=== PATIENT | female | born 1950 | race Caucasian/White ===

== ENCOUNTER 2016-08-18 21:41 | Emergency (ER) | payer OTHER ==
--- NOTE | 2016-08-18 22:12 | ED CLINICAL REPORT ---
Clinical Report - Physicians/Mid Levels [facility] [address] [place] [address] 08/18/2016 21:54 Patient: MAG DE OLIVEIRA Time Seen: 21:58; upon arrival, initial patient contact, initial documentation, patient care assumed. Arrived- By private vehicle. Historian- patient. HISTORY OF PRESENT ILLNESS Chief Complaint: Injury to ABDOMEN. Location of injuries- abdomen. The injury occurred about 3 days ago. 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 Occurred at work. The patient complains of severe pain. No blow to the head, neck pain, loss of consciousness or seizure. Not dazed. REVIEW OF SYSTEMS No laceration. All systems otherwise negative, except as recorded above. PAST HISTORY See nurses notes. PAST HISTORY ( Insect Bite(s). Fall. Abrasion(s). Contusion. Fibula Fracture. Tetanus Status. Bronchitis. Immunizations. Tendonitis. Hives. SURGERIES: Tonsillectomy.). Tetanus immunization status is unknown. SOCIAL HISTORY Never smoker. No alcohol use or drug use. No recent travel. Is a local resident. FAMILY HISTORY No significant family medical history. ADDITIONAL NOTES The nursing notes have been reviewed with agreement regarding the chief complaint, HPI, ROS, PMH and patient medications and allergies. PHYSICAL EXAM Vital Signs: 08/18/2016 22:02 BP: 158/79. HR: 84. RR: 20. O2 saturation: 98%. Temp: 98.4 F. Pain level now: 8/10. Have been reviewed as normal and appear to be correct. Appearance: Alert. Oriented X3. No acute distress. Eyes: Pupils equal, round and reactive to light. EOM intact. ENT: No dental injury. Pharynx normal. Abdomen: Injury is visible. Soft. Abdomen: severe tenderness and small abrasion located in the mid-upper abdomen. (2cm superficial abrasion without any s/s of infection, no swelling, no erythema, no warmth, no dc, but pt jumpy and states it hurts really bad). No erythema, puncture wound or foreign body. No swelling. No laceration. No ecchymosis. No guarding present. No rebound present. Tenderness present. Skin: Skin intact. Skin warm and dry. Normal skin color. Normal skin turgor. Extremities: Normal inspection. Pelvis stable. Extremities atraumatic. No lower extremity edema. Neuro: Oriented X 3. No motor deficit. No sensory deficit. PROGRESS AND PROCEDURES Course of Care: when explaining to pt that wound looked great, no s/s of infection, she insisted it was infected, and c/o severe pain, it was swollen and was hard, admitted to no wound care because it 'hurt too bad' 22:11 08/18/16. L&I paperwork completed. Patient counseled in person regarding the patient's stable condition and diagnosis. 22:12. Differential Diagnosis: Other possible considerations: scratch/abrasions, infected wound, cat scratch fever. Above considerations are based on history and physical exam. Differential diagnosis was discussed with patient. Disposition: Discharged home in good and improved condition (22:12). Condition: good and stable. CLINICAL IMPRESSION (Cat Scratch - abd). INSTRUCTIONS Protect wound and keep wound area clean. Soak in warm soapy water. Apply bacitracin twice daily. Warnings: TETANUS: You were given a tetanus shot during your visit. Make a note for future reference. GENERAL WARNINGS: Return or contact your physician immediately if your condition worsens or changes unexpectedly, if not improving as expected, or if other problems arise. wound gets worse. Prescription Medications: Naproxen 500 mg tablets: take 1 orally every 12 hours as needed for pain. Dispense twenty (20). No refills. Cephalexin 500 mg: take 1 capsule orally every 12 hours for 7 days. No refill. Follow-up: Follow up with your doctor in about three days as needed and for wound check. Call for an appointment. Summary of care provided to patient. Understanding of the discharge instructions verbalized by patient. (Electronically signed by Ivelisse Tamayo A.R.N.P. 08/18/2016 22:43)
--- NOTE | 2016-08-18 22:12 | ED CLINICAL REPORT ---
Clinical Report - Physicians/Mid Levels [facility] [address] [place] [address] 08/18/2016 21:54 Patient: MAG DE OLIVEIRA Time Seen: 21:58; upon arrival, initial patient contact, initial documentation, patient care assumed. Arrived- By private vehicle. Historian- patient. HISTORY OF PRESENT ILLNESS Chief Complaint: Injury to ABDOMEN. Location of injuries- abdomen. The injury occurred about 3 days ago. 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 Occurred at work. The patient complains of severe pain. No blow to the head, neck pain, loss of consciousness or seizure. Not dazed. REVIEW OF SYSTEMS No laceration. All systems otherwise negative, except as recorded above. PAST HISTORY See nurses notes. PAST HISTORY ( Insect Bite(s). Fall. Abrasion(s). Contusion. Fibula Fracture. Tetanus Status. Bronchitis. Immunizations. Tendonitis. Hives. SURGERIES: Tonsillectomy.). Tetanus immunization status is unknown. SOCIAL HISTORY Never smoker. No alcohol use or drug use. No recent travel. Is a local resident. FAMILY HISTORY No significant family medical history. ADDITIONAL NOTES The nursing notes have been reviewed with agreement regarding the chief complaint, HPI, ROS, PMH and patient medications and allergies. PHYSICAL EXAM Vital Signs: 08/18/2016 22:02 BP: 158/79. HR: 84. RR: 20. O2 saturation: 98%. Temp: 98.4 F. Pain level now: 8/10. Have been reviewed as normal and appear to be correct. Appearance: Alert. Oriented X3. No acute distress. Eyes: Pupils equal, round and reactive to light. EOM intact. ENT: No dental injury. Pharynx normal. Abdomen: Injury is visible. Soft. Abdomen: severe tenderness and small abrasion located in the mid-upper abdomen. (2cm superficial abrasion without any s/s of infection, no swelling, no erythema, no warmth, no dc, but pt jumpy and states it hurts really bad). No erythema, puncture wound or foreign body. No swelling. No laceration. No ecchymosis. No guarding present. No rebound present. Tenderness present. Skin: Skin intact. Skin warm and dry. Normal skin color. Normal skin turgor. Extremities: Normal inspection. Pelvis stable. Extremities atraumatic. No lower extremity edema. Neuro: Oriented X 3. No motor deficit. No sensory deficit. PROGRESS AND PROCEDURES Course of Care: when explaining to pt that wound looked great, no s/s of infection, she insisted it was infected, and c/o severe pain, it was swollen and was hard, admitted to no wound care because it 'hurt too bad' 22:11 08/18/16. L&I paperwork completed. Patient counseled in person regarding the patient's stable condition and diagnosis. 22:12. Differential Diagnosis: Other possible considerations: scratch/abrasions, infected wound, cat scratch fever. Above considerations are based on history and physical exam. Differential diagnosis was discussed with patient. Disposition: Discharged home in good and improved condition (22:12). Condition: good and stable. CLINICAL IMPRESSION (Cat Scratch - abd). INSTRUCTIONS Protect wound and keep wound area clean. Soak in warm soapy water. Apply bacitracin twice daily. Warnings: TETANUS: You were given a tetanus shot during your visit. Make a note for future reference. GENERAL WARNINGS: Return or contact your physician immediately if your condition worsens or changes unexpectedly, if not improving as expected, or if other problems arise. wound gets worse. Prescription Medications: Naproxen 500 mg tablets: take 1 orally every 12 hours as needed for pain. Dispense twenty (20). No refills. Cephalexin 500 mg: take 1 capsule orally every 12 hours for 7 days. No refill. Follow-up: Follow up with your doctor in about three days as needed and for wound check. Call for an appointment. Summary of care provided to patient. Understanding of the discharge instructions verbalized by patient. (Electronically signed by Ivelisse Tamayo A.R.N.P. 08/18/2016 22:43)
--- NOTE | 2016-08-18 22:12 | ED ORDER SUMMARY ---
..... Patient: MAG DE OLIVEIRA OrderSheet [facility] VisitID: [id number] [address] [place] [address] 65y, F Registration Date/Time: 08/18/2016 ORDER SHEET Weight: 72.5 kg (stated) Allergies: Amoxicillin GENERAL ORDERS: MEDICATION ORDERS: Tdap IM 0.5 mL (NOW, per protocol) (22:09 08/18/2016 HBivens A.R.N.P.) ([facility] 22:11 ann marie) (22:18 [facility] IV FLUIDS: ORDER SHEET NOTES: [Electronically signed by Ivelisse Tamayo A.R.N.P. (22:43 08/18/2016)] [Electronically signed by Maame Juarez (23:39 08/18/2016)] [Electronically locked/signed by Maame Juarez (23:39 08/18/2016)]
--- NOTE | 2016-08-18 22:12 | ED ORDER SUMMARY ---
..... Patient: MAG DE OLIVEIRA OrderSheet [facility] VisitID: [id number] [address] [place] [address] 65y, F Registration Date/Time: 08/18/2016 ORDER SHEET Weight: 72.5 kg (stated) Allergies: Amoxicillin GENERAL ORDERS: MEDICATION ORDERS: Tdap IM 0.5 mL (NOW, per protocol) (22:09 08/18/2016 HBivens A.R.N.P.) ([facility] 22:11 ann marie) (22:18 [facility] IV FLUIDS: ORDER SHEET NOTES: [Electronically signed by Ivelisse Tamayo A.R.N.P. (22:43 08/18/2016)] [Electronically signed by Maame Juarez (23:39 08/18/2016)] [Electronically locked/signed by Maame Juarez (23:39 08/18/2016)]
--- NOTE | 2016-08-18 22:12 | ED NURSING NOTES ---
Clinical Report - Nurses [facility] [address] [place] [address] 08/18/2016 21:54 [id number] Triage time 22:02 Aug 18 2016. SEPSIS SCREEN: Sepsis Screen: negative. Negative (no infection suspected/documented). ERIC COMA SCORE: [place] Coma Scale: 15- eyes open spontaneously (4); best verbal response- oriented x 4 (5); best motor response- obeys commands (6). --22:09 AliM 22:02 08/18/16. BP: 158/79. HR: 84. RR: 20. O2 saturation: 98%. Temp: 98.4 F (oral). Pain level now: 8/10. --22:09 AliM Chief Complaint: (Cat scratch on abdomen). --22:30 AliM. Weight: 72.5 kg stated. Height/Length: 61 inches Per Patient. BMI: 30.2. --22:09 AliM. Medications None. --23:39 Maame Juarez. Allergies Amoxicillin. --22:04 AliM. History Arrived by private vehicle. Historian: patient. Accompanied by family. Primary physician (none). ( Cat scratch on abd). Onset. (3 days ago). ( Pt reports getting cat scratch on abd at work 2-4 days ago. Pt reports pain and swelling to the area and states it wont heal.). No weakness or difficulty breathing. Denies muscle aches. PAST MEDICAL HX: Immunizations: up-to-date. Last normal menstrual period- 58 years old. SOCIAL HX: Never smoker. Occasional alcohol use. No drug use. No infectious disease exposure. ABUSE ASSESSMENT: No report of abuse. FALL RISK ASSESSMENT: Fall risk assessment completed. No fall risk identified. NUTRITIONAL RISK ASSESSMENT: The nutritional risk assessment revealed no deficiencies. FUNCTIONAL ASSESSMENT: Functional assessment: no impairments noted. LEARNING NEEDS ASSESSMENT: The learning needs assessment revealed no barriers. SKIN INTEGRITY ASSESSMENT: Skin integrity risk assessment completed. No skin integrity risk identified. --22:09 AliM. PROBLEMS: Tetanus Status. --22:06 AliM. ADDITIONAL SURGERIES: Tonsillectomy. --22:06 AliM. Interventions ID band on patient. To treatment room. --22:09 AliM. PHYSICAL ASSESSMENT Ambulatory to room. GENERAL / NEURO / PSYCH: Alert. Oriented X 4. Appears in no acute distress. HEENT: No facial asymmetry noted. Mucous membranes are pink. RESPIRATORY: Respirations not labored. CVS: Capillary refill less than 2 seconds. SKIN: Skin is warm and dry. Normal skin turgor. --22:11 AliM SKIN: ( Approx 1 inch scab with redness on middle upper abdomen.). --22:12 AliM. NURSING PROGRESS NOTES 22:13 08/18/2016 TDAP IM 0.5 mL given. (Lot#: [id number], expiration date: 03/24/2018, [employer] Attendant: sanofi pasteur). Given in the left deltoid. Allergies verified and confirmed 5 rights. Vaccine information statement provided to the patient. --22:18 AliM. DISPOSITION / DISCHARGE Condition at departure: stable. ( Pain still present but VS improved.). No learning barriers present. Discharge instructions provided and reviewed with the patient. Patient verbalized understanding. Written instructions provided in Yi. ( Taught pt to avoid irritation from bra to affected area, apply ice as needed for pain/swelling. Drink plenty of fluids with antibiotic. Gave number for [facility] to find PCP.). The patient was discharged by the nurse practitioner. She was discharged home and accompanied by spouse. She left the Emergency Department ambulatory and via private vehicle. Patient driving. FALL RISK ASSESSMENT: Fall risk assessment completed. No fall risk identified. --22:29 AliM 22:27 08/18/16. BP: 127/74. HR: 87. RR: 16. O2 saturation: 96%. Temp: 97.9 F (oral). Pain level now: 01/27. --22:29 Maritza Reviewed medication(s) side effects, precautions, dosing and course information. Prescription(s) given to the patient. --22:31 AliM 23:38 08/18/16. ( Chart reviewed by writing RN). --23:38 Maame Juarez. Locked/Released at 08/18/2016 23:39 by Maame Juarez,
--- NOTE | 2016-08-18 22:12 | ED NURSING NOTES ---
Clinical Report - Nurses [facility] [address] [place] [address] 08/18/2016 21:54 [id number] Triage time 22:02 Aug 18 2016. SEPSIS SCREEN: Sepsis Screen: negative. Negative (no infection suspected/documented). ERIC COMA SCORE: [place] Coma Scale: 15- eyes open spontaneously (4); best verbal response- oriented x 4 (5); best motor response- obeys commands (6). --22:09 AliM 22:02 08/18/16. BP: 158/79. HR: 84. RR: 20. O2 saturation: 98%. Temp: 98.4 F (oral). Pain level now: 8/10. --22:09 AliM Chief Complaint: (Cat scratch on abdomen). --22:30 AliM. Weight: 72.5 kg stated. Height/Length: 61 inches Per Patient. BMI: 30.2. --22:09 AliM. Medications None. --23:39 Maame Juarez. Allergies Amoxicillin. --22:04 AliM. History Arrived by private vehicle. Historian: patient. Accompanied by family. Primary physician (none). ( Cat scratch on abd). Onset. (3 days ago). ( Pt reports getting cat scratch on abd at work 2-4 days ago. Pt reports pain and swelling to the area and states it wont heal.). No weakness or difficulty breathing. Denies muscle aches. PAST MEDICAL HX: Immunizations: up-to-date. Last normal menstrual period- 58 years old. SOCIAL HX: Never smoker. Occasional alcohol use. No drug use. No infectious disease exposure. ABUSE ASSESSMENT: No report of abuse. FALL RISK ASSESSMENT: Fall risk assessment completed. No fall risk identified. NUTRITIONAL RISK ASSESSMENT: The nutritional risk assessment revealed no deficiencies. FUNCTIONAL ASSESSMENT: Functional assessment: no impairments noted. LEARNING NEEDS ASSESSMENT: The learning needs assessment revealed no barriers. SKIN INTEGRITY ASSESSMENT: Skin integrity risk assessment completed. No skin integrity risk identified. --22:09 AliM. PROBLEMS: Tetanus Status. --22:06 AliM. ADDITIONAL SURGERIES: Tonsillectomy. --22:06 AliM. Interventions ID band on patient. To treatment room. --22:09 AliM. PHYSICAL ASSESSMENT Ambulatory to room. GENERAL / NEURO / PSYCH: Alert. Oriented X 4. Appears in no acute distress. HEENT: No facial asymmetry noted. Mucous membranes are pink. RESPIRATORY: Respirations not labored. CVS: Capillary refill less than 2 seconds. SKIN: Skin is warm and dry. Normal skin turgor. --22:11 AliM SKIN: ( Approx 1 inch scab with redness on middle upper abdomen.). --22:12 AliM. NURSING PROGRESS NOTES 22:13 08/18/2016 TDAP IM 0.5 mL given. (Lot#: [id number], expiration date: 03/24/2018, [employer] Operator: sanofi pasteur). Given in the left deltoid. Allergies verified and confirmed 5 rights. Vaccine information statement provided to the patient. --22:18 AliM. DISPOSITION / DISCHARGE Condition at departure: stable. ( Pain still present but VS improved.). No learning barriers present. Discharge instructions provided and reviewed with the patient. Patient verbalized understanding. Written instructions provided in Slovak. ( Taught pt to avoid irritation from bra to affected area, apply ice as needed for pain/swelling. Drink plenty of fluids with antibiotic. Gave number for [facility] to find PCP.). The patient was discharged by the nurse practitioner. She was discharged home and accompanied by spouse. She left the Emergency Department ambulatory and via private vehicle. Patient driving. FALL RISK ASSESSMENT: Fall risk assessment completed. No fall risk identified. --22:29 AliM 22:27 08/18/16. BP: 127/74. HR: 87. RR: 16. O2 saturation: 96%. Temp: 97.9 F (oral). Pain level now: 01/27. --22:29 Maritza Reviewed medication(s) side effects, precautions, dosing and course information. Prescription(s) given to the patient. --22:31 AliM 23:38 08/18/16. ( Chart reviewed by writing RN). --23:38 Maame Juarez. Locked/Released at 08/18/2016 23:39 by Maame Juarez,
--- NOTE | 2016-08-18 23:39 | ED MED RECONCILIATION SUMMARY ---
Patient: MAG DE OLIVEIRA Medication Reconciliation Report [facility] VisitID: [id number] [address] [place] [address] 65y, F Registration Date/Time: 08/18/2016 Weight: 72.5 kg Height/Length: 61 in. BMI: 30.2 ALLERGIES: Amoxicillin The patient's Home Medications are listed below: NONE. The source(s) of the original Home Medication information: Not obtained. The following Medications were given to the patient in the Emergency Department: TDAP [IM] IM 0.5 mL, administered: 08/18/2016 10:13:00 PM The following Medications were prescribed to the patient: Naproxen 500 mg tablets: take 1 orally every 12 hours as needed for pain. Dispense twenty (20). No refills. -- Ivelisse Tamayo, Vahe.R.N.P. Cephalexin 500 mg: take 1 capsule orally every 12 hours for 7 days. No refill. -- Ivelisse Tamayo A.R.N.P.
--- NOTE | 2016-08-18 23:39 | ED MAR SUMMARY ---
..... Medication Administration Record [facility] [address] [place] [address] Patient: MAG DE OLIVEIRA Visit ID: [id number] 65y, F Weight: 72.5 kg Height/Length: 61 in BMI: 30.2 ALLERGIES: Amoxicillin Given 22:13 08/18/2016 Maritza, Medication Administered: TDAP [IM], Dose: 0.5 mL IM. Medication Ordered: Tdap IM 0.5 mL (NOW, per protocol).
--- NOTE | 2016-08-18 23:39 | ED DISCHARGE INSTRUCTIONS ---
Patient: MAG DE OLIVEIRA General Instructions [facility] VisitID: [id number] [place] [address] 65y, F Registration Date/Time: 08/18/2016 ([employer] - abd). INSTRUCTIONS Protect wound and keep wound area clean. Soak in warm soapy water. Apply bacitracin twice daily. Warnings: TETANUS: You were given a tetanus shot during your visit. Make a note for future reference. GENERAL WARNINGS: Return or contact your physician immediately if your condition worsens or changes unexpectedly, if not improving as expected, or if other problems arise. wound gets worse. Prescription Medications: Naproxen 500 mg tablets: take 1 orally every 12 hours as needed for pain. Dispense twenty (20). No refills. Cephalexin 500 mg: take 1 capsule orally every 12 hours for 7 days. No refill. Follow-up: Follow up with your doctor in about three days as needed and for wound check. Call for an appointment. Summary of care provided to patient. Understanding of the discharge instructions verbalized by patient. ADDITIONAL INFORMATION Diphtheria Toxoid Adsorbed, Pertussis Vaccine, Acellular (Adsorbed), Tetanus Toxoid, Adsorbed Suspension for injection What is this medicine? DIPHTHERIA and TETANUS TOXOIDS; PERTUSSIS VACCINE (dif THEER ee uh and TET n us TOK soids; per HERVE ochoa SEEN) is used to prevent diphtheria, tetanus, and pertussis infections. How should I use this medicine? This vaccine is for injection into a muscle. It is given by a health hospice patient care secretary. A copy of Vaccine Information Statements will be given before each vaccination. Read this sheet carefully each time. The sheet may change frequently. Talk to your truck terminal manager regarding the use of this vaccine in children. While the DTP vaccine may be given to children ages 6 weeks to 7 years and the Tdap vaccine may be given to children at least 10 years old, precautions do apply. What side effects may I notice from receiving this medicine? Side effects that you should report to your doctor or health hospice patient care secretary as soon as possible: allergic reactions like skin rash, itching or hives, swelling of the face, lips, or tongue breathing problems fever of 103 degrees F or more flu-like symptoms inconsolable crying infection pain, tingling, numbness in the hands or feet seizures swelling of arm or leg that was injected unusually weak or tired Side effects that usually do not require immediate medical attention (report these side effects to your doctor or health hospice patient care secretary if they continue or are bothersome): fussy, irritable loss of appetite fever of 102 degrees F or less pain, tenderness, redness, swelling, or a 'knot' at site where injected vomiting What may interact with this medicine? immune globulin medicines that suppress your immune function like adalimumab, anakinra, infliximab medicines to treat cancer medicines that treat or prevent blood clots like warfarin, enoxaparin, and dalteparin steroid medicines like prednisone or cortisone What if I miss a dose? It is important not to miss your dose. Call your doctor or health hospice patient care secretary if you are unable to keep an appointment. Where should I keep my medicine? This drug is given in a hospital or clinic and will not be stored at home. What should I tell my health care provider before I take this medicine? They need to know if you have any of these conditions: blood disorders like hemophilia fever or infection immune system problems neurologic disease seizures an unusual or allergic reaction to vaccines, thimerosal, latex, other medicines, foods, dyes, or preservatives or trying to get breast-feeding What should I watch for while using this medicine? See your health care provider for all shots of this vaccine as directed. To have protection from infection, you must have 3 shots of this vaccine plus boosters as needed. Tell your doctor right away if you have any serious or unusual side effects after getting this vaccine. Naproxen Sodium Oral tablet What is this medicine? NAPROXEN (na PROX en) is a non-steroidal anti-inflammatory drug (NSAID). It is used to reduce swelling and to treat pain. This medicine may be used for dental pain, headache, or painful monthly periods. It is also used for painful joint and muscular problems such as arthritis, tendinitis, bursitis, and gout. How should I use this medicine? Take this medicine by mouth with a glass of water. Follow the directions on the prescription label. Take it with food if your stomach gets upset. Try to not lie down for at least 10 minutes after you take it. Take your medicine at regular intervals. Do not take your medicine more often than directed. Long-term, continuous use may increase the risk of heart attack or stroke. A special MedGuide will be given to you by the pharmacist with each prescription and refill. Be sure to read this information carefully each time. Talk to your truck terminal manager regarding the use of this medicine in children. Special care may be needed. What side effects may I notice from receiving this medicine? Side effects that you should report to your doctor or health hospice patient care secretary as soon as possible: black or bloody stools, blood in the urine or vomit blurred vision chest pain difficulty breathing or wheezing nausea or vomiting severe stomach pain skin rash, skin redness, blistering or peeling skin, hives, or itching slurred speech or weakness on one side of the body swelling of eyelids, throat, lips unexplained weight gain or swelling unusually weak or tired yellowing of eyes or skin Side effects that usually do not require medical attention (report to your doctor or health hospice patient care secretary if they continue or are bothersome): constipation headache heartburn What may interact with this medicine? alcohol aspirin cidofovir diuretics lithium methotrexate other drugs for inflammation like ketorolac or prednisone pemetrexed probenecid warfarin What if I miss a dose? If you miss a dose, take it as soon as you can. If it is almost time for your next dose, take only that dose. Do not take double or extra doses. Where should I keep my medicine? Keep out of the reach of children. Store at room temperature between 15 and 30 degrees C (59 and 86 degrees F). Keep container tightly closed. Throw away any unused medicine after the expiration date. What should I tell my health care provider before I take this medicine? They need to know if you have any of these conditions: asthma cigarette smoker drink more than 3 alcohol containing drinks a day heart disease or circulation problems such as heart failure or leg edema (fluid retention) high blood pressure kidney disease liver disease stomach bleeding or ulcers an unusual or allergic reaction to naproxen, aspirin, other NSAIDs, other medicines, foods, dyes, or preservatives or trying to get breast-feeding What should I watch for while using this medicine? Tell your doctor or health hospice patient care secretary if your pain does not get better. Talk to your doctor before taking another medicine for pain. Do not treat yourself. This medicine does not prevent heart attack or stroke. In fact, this medicine may increase the chance of a heart attack or stroke. The chance may increase with longer use of this medicine and in people who have heart disease. If you take aspirin to prevent heart attack or stroke, talk with your doctor or health hospice patient care secretary. Do not take other medicines that contain aspirin, ibuprofen, or naproxen with this medicine. Side effects such as stomach upset, nausea, or ulcers may be more likely to occur. Many medicines available without a prescription should not be taken with this medicine. This medicine can cause ulcers and bleeding in the stomach and intestines at any time during treatment. Do not smoke cigarettes or drink alcohol. These increase irritation to your stomach and can make it more susceptible to damage from this medicine. Ulcers and bleeding can happen without warning symptoms and can cause . You may get drowsy or dizzy. Do not drive, use machinery, or do anything that needs mental alertness until you know how this medicine affects you. Do not stand or sit up quickly, especially if you are an older patient. This reduces the risk of dizzy or fainting spells. This medicine can cause you to bleed more easily. Try to avoid damage to your teeth and gums when you brush or floss your teeth. Cephalexin Monohydrate Oral tablet What is this medicine? CEPHALEXIN (sef a RICHARD in) is a cephalosporin antibiotic. It is used to treat certain kinds of bacterial infections It will not work for colds, flu, or other viral infections. How should I use this medicine? Take this medicine by mouth with a full glass of water. Follow the directions on the prescription label. This medicine can be taken with or without food. Take your medicine at regular intervals. Do not take your medicine more often than directed. Take all of your medicine as directed even if you think you are better. Do not skip doses or stop your medicine early. Talk to your truck terminal manager regarding the use of this medicine in children. While this drug may be prescribed for selected conditions, precautions do apply. What side effects may I notice from receiving this medicine? Side effects that you should report to your doctor or health hospice patient care secretary as soon as possible: allergic reactions like skin rash, itching or hives, swelling of the face, lips, or tongue breathing problems pain or trouble passing urine redness, blistering, peeling or loosening of the skin, including inside the mouth severe or watery diarrhea unusually weak or tired yellowing of the eyes, skin Side effects that usually do not require medical attention (report to your doctor or health hospice patient care secretary if they continue or are bothersome): gas or heartburn genital or anal irritation headache joint or muscle pain nausea, vomiting What may interact with this medicine? probenecid some other antibiotics What if I miss a dose? If you miss a dose, take it as soon as you can. If it is almost time for your next dose, take only that dose. Do not take double or extra doses. There should be at least 4 to 6 hours between doses. Where should I keep my medicine? Keep out of the reach of children. Store at room temperature between 59 and 86 degrees F (15 and 30 degrees C). Throw away any unused medicine after the expiration date. What should I tell my health care provider before I take this medicine? They need to know if you have any of these conditions: kidney disease stomach or intestine problems, especially colitis an unusual or allergic reaction to cephalexin, other cephalosporins, penicillins, other antibiotics, medicines, foods, dyes or preservatives or trying to get breast-feeding What should I watch for while using this medicine? Tell your doctor or health hospice patient care secretary if your symptoms do not begin to improve in a few days. Do not treat diarrhea with over the counter products. Contact your doctor if you have diarrhea that lasts more than 2 days or if it is severe and watery. If you have diabetes, you may get a false-positive result for sugar in your urine. Check with your doctor or health hospice patient care secretary. You have been given the following additional information: Diphtheria Toxoid Adsorbed, Pertussis Vaccine, Acellular (Adsorbed), Tetanus Toxoid, Adsorbed Suspension for injection Naproxen Sodium Oral tablet Cephalexin Monohydrate Oral tablet (Electronically signed by Ivelisse Tamayo A.R.N.P. 08/18/2016 22:43)
--- NOTE | 2016-08-18 23:39 | ED MED RECONCILIATION SUMMARY ---
Patient: MAG DE OLIVEIRA Medication Reconciliation Report [facility] VisitID: [id number] [place] [address] 65y, F Registration Date/Time: 08/18/2016 Weight: 72.5 kg Height/Length: 61 in. BMI: 30.2 ALLERGIES: Amoxicillin The patient's Home Medications are listed below: NONE. The source(s) of the original Home Medication information: Not obtained. The following Medications were given to the patient in the Emergency Department: TDAP [IM] IM 0.5 mL, administered: 08/18/2016 10:13:00 PM The following Medications were prescribed to the patient: Naproxen 500 mg tablets: take 1 orally every 12 hours as needed for pain. Dispense twenty (20). No refills. -- Ivelisse Tamayo, Vahe.R.N.P. Cephalexin 500 mg: take 1 capsule orally every 12 hours for 7 days. No refill. -- Ivelisse Tamayo A.R.N.P.
--- NOTE | 2016-08-18 23:39 | ED DISCHARGE INSTRUCTIONS ---
Patient: MAG DE OLIVEIRA General Instructions Merged With [facility] VisitID: [id number] [place] [address] 65y, F Registration Date/Time: 08/18/2016 ([facility] - abd). INSTRUCTIONS Protect wound and keep wound area clean. Soak in warm soapy water. Apply bacitracin twice daily. Warnings: TETANUS: You were given a tetanus shot during your visit. Make a note for future reference. GENERAL WARNINGS: Return or contact your physician immediately if your condition worsens or changes unexpectedly, if not improving as expected, or if other problems arise. wound gets worse. Prescription Medications: Naproxen 500 mg tablets: take 1 orally every 12 hours as needed for pain. Dispense twenty (20). No refills. Cephalexin 500 mg: take 1 capsule orally every 12 hours for 7 days. No refill. Follow-up: Follow up with your doctor in about three days as needed and for wound check. Call for an appointment. Summary of care provided to patient. Understanding of the discharge instructions verbalized by patient. ADDITIONAL INFORMATION Diphtheria Toxoid Adsorbed, Pertussis Vaccine, Acellular (Adsorbed), Tetanus Toxoid, Adsorbed Suspension for injection What is this medicine? DIPHTHERIA and TETANUS TOXOIDS; PERTUSSIS VACCINE (dif THEER ee uh and TET n us TOK soids; per HERVE ochoa SEEN) is used to prevent diphtheria, tetanus, and pertussis infections. How should I use this medicine? This vaccine is for injection into a muscle. It is given by a health complex care nurse practitioner. A copy of Vaccine Information Statements will be given before each vaccination. Read this sheet carefully each time. The sheet may change frequently. Talk to your court specialist regarding the use of this vaccine in children. While the DTP vaccine may be given to children ages 6 weeks to 7 years and the Tdap vaccine may be given to children at least 10 years old, precautions do apply. What side effects may I notice from receiving this medicine? Side effects that you should report to your doctor or health complex care nurse practitioner as soon as possible: allergic reactions like skin rash, itching or hives, swelling of the face, lips, or tongue breathing problems fever of 103 degrees F or more flu-like symptoms inconsolable crying infection pain, tingling, numbness in the hands or feet seizures swelling of arm or leg that was injected unusually weak or tired Side effects that usually do not require immediate medical attention (report these side effects to your doctor or health complex care nurse practitioner if they continue or are bothersome): fussy, irritable loss of appetite fever of 102 degrees F or less pain, tenderness, redness, swelling, or a 'knot' at site where injected vomiting What may interact with this medicine? immune globulin medicines that suppress your immune function like adalimumab, anakinra, infliximab medicines to treat cancer medicines that treat or prevent blood clots like warfarin, enoxaparin, and dalteparin steroid medicines like prednisone or cortisone What if I miss a dose? It is important not to miss your dose. Call your doctor or health complex care nurse practitioner if you are unable to keep an appointment. Where should I keep my medicine? This drug is given in a hospital or clinic and will not be stored at home. What should I tell my health care provider before I take this medicine? They need to know if you have any of these conditions: blood disorders like hemophilia fever or infection immune system problems neurologic disease seizures an unusual or allergic reaction to vaccines, thimerosal, latex, other medicines, foods, dyes, or preservatives or trying to get breast-feeding What should I watch for while using this medicine? See your health care provider for all shots of this vaccine as directed. To have protection from infection, you must have 3 shots of this vaccine plus boosters as needed. Tell your doctor right away if you have any serious or unusual side effects after getting this vaccine. Naproxen Sodium Oral tablet What is this medicine? NAPROXEN (na PROX en) is a non-steroidal anti-inflammatory drug (NSAID). It is used to reduce swelling and to treat pain. This medicine may be used for dental pain, headache, or painful monthly periods. It is also used for painful joint and muscular problems such as arthritis, tendinitis, bursitis, and gout. How should I use this medicine? Take this medicine by mouth with a glass of water. Follow the directions on the prescription label. Take it with food if your stomach gets upset. Try to not lie down for at least 10 minutes after you take it. Take your medicine at regular intervals. Do not take your medicine more often than directed. Long-term, continuous use may increase the risk of heart attack or stroke. A special MedGuide will be given to you by the pharmacist with each prescription and refill. Be sure to read this information carefully each time. Talk to your court specialist regarding the use of this medicine in children. Special care may be needed. What side effects may I notice from receiving this medicine? Side effects that you should report to your doctor or health complex care nurse practitioner as soon as possible: black or bloody stools, blood in the urine or vomit blurred vision chest pain difficulty breathing or wheezing nausea or vomiting severe stomach pain skin rash, skin redness, blistering or peeling skin, hives, or itching slurred speech or weakness on one side of the body swelling of eyelids, throat, lips unexplained weight gain or swelling unusually weak or tired yellowing of eyes or skin Side effects that usually do not require medical attention (report to your doctor or health complex care nurse practitioner if they continue or are bothersome): constipation headache heartburn What may interact with this medicine? alcohol aspirin cidofovir diuretics lithium methotrexate other drugs for inflammation like ketorolac or prednisone pemetrexed probenecid warfarin What if I miss a dose? If you miss a dose, take it as soon as you can. If it is almost time for your next dose, take only that dose. Do not take double or extra doses. Where should I keep my medicine? Keep out of the reach of children. Store at room temperature between 15 and 30 degrees C (59 and 86 degrees F). Keep container tightly closed. Throw away any unused medicine after the expiration date. What should I tell my health care provider before I take this medicine? They need to know if you have any of these conditions: asthma cigarette smoker drink more than 3 alcohol containing drinks a day heart disease or circulation problems such as heart failure or leg edema (fluid retention) high blood pressure kidney disease liver disease stomach bleeding or ulcers an unusual or allergic reaction to naproxen, aspirin, other NSAIDs, other medicines, foods, dyes, or preservatives or trying to get breast-feeding What should I watch for while using this medicine? Tell your doctor or health complex care nurse practitioner if your pain does not get better. Talk to your doctor before taking another medicine for pain. Do not treat yourself. This medicine does not prevent heart attack or stroke. In fact, this medicine may increase the chance of a heart attack or stroke. The chance may increase with longer use of this medicine and in people who have heart disease. If you take aspirin to prevent heart attack or stroke, talk with your doctor or health complex care nurse practitioner. Do not take other medicines that contain aspirin, ibuprofen, or naproxen with this medicine. Side effects such as stomach upset, nausea, or ulcers may be more likely to occur. Many medicines available without a prescription should not be taken with this medicine. This medicine can cause ulcers and bleeding in the stomach and intestines at any time during treatment. Do not smoke cigarettes or drink alcohol. These increase irritation to your stomach and can make it more susceptible to damage from this medicine. Ulcers and bleeding can happen without warning symptoms and can cause . You may get drowsy or dizzy. Do not drive, use machinery, or do anything that needs mental alertness until you know how this medicine affects you. Do not stand or sit up quickly, especially if you are an older patient. This reduces the risk of dizzy or fainting spells. This medicine can cause you to bleed more easily. Try to avoid damage to your teeth and gums when you brush or floss your teeth. Cephalexin Monohydrate Oral tablet What is this medicine? CEPHALEXIN (sef a RICHARD in) is a cephalosporin antibiotic. It is used to treat certain kinds of bacterial infections It will not work for colds, flu, or other viral infections. How should I use this medicine? Take this medicine by mouth with a full glass of water. Follow the directions on the prescription label. This medicine can be taken with or without food. Take your medicine at regular intervals. Do not take your medicine more often than directed. Take all of your medicine as directed even if you think you are better. Do not skip doses or stop your medicine early. Talk to your court specialist regarding the use of this medicine in children. While this drug may be prescribed for selected conditions, precautions do apply. What side effects may I notice from receiving this medicine? Side effects that you should report to your doctor or health complex care nurse practitioner as soon as possible: allergic reactions like skin rash, itching or hives, swelling of the face, lips, or tongue breathing problems pain or trouble passing urine redness, blistering, peeling or loosening of the skin, including inside the mouth severe or watery diarrhea unusually weak or tired yellowing of the eyes, skin Side effects that usually do not require medical attention (report to your doctor or health complex care nurse practitioner if they continue or are bothersome): gas or heartburn genital or anal irritation headache joint or muscle pain nausea, vomiting What may interact with this medicine? probenecid some other antibiotics What if I miss a dose? If you miss a dose, take it as soon as you can. If it is almost time for your next dose, take only that dose. Do not take double or extra doses. There should be at least 4 to 6 hours between doses. Where should I keep my medicine? Keep out of the reach of children. Store at room temperature between 59 and 86 degrees F (15 and 30 degrees C). Throw away any unused medicine after the expiration date. What should I tell my health care provider before I take this medicine? They need to know if you have any of these conditions: kidney disease stomach or intestine problems, especially colitis an unusual or allergic reaction to cephalexin, other cephalosporins, penicillins, other antibiotics, medicines, foods, dyes or preservatives or trying to get breast-feeding What should I watch for while using this medicine? Tell your doctor or health complex care nurse practitioner if your symptoms do not begin to improve in a few days. Do not treat diarrhea with over the counter products. Contact your doctor if you have diarrhea that lasts more than 2 days or if it is severe and watery. If you have diabetes, you may get a false-positive result for sugar in your urine. Check with your doctor or health complex care nurse practitioner. You have been given the following additional information: Diphtheria Toxoid Adsorbed, Pertussis Vaccine, Acellular (Adsorbed), Tetanus Toxoid, Adsorbed Suspension for injection Naproxen Sodium Oral tablet Cephalexin Monohydrate Oral tablet (Electronically signed by Ivelisse Tamayo A.R.N.P. 08/18/2016 22:43)
--- NOTE | 2016-08-18 23:39 | ED MAR SUMMARY ---
..... Medication Administration Record [facility] [address] [place] [address] Patient: MAG DE OLIVEIRA Visit ID: [id number] 65y, F Weight: 72.5 kg Height/Length: 61 in BMI: 30.2 ALLERGIES: Amoxicillin Given 22:13 08/18/2016 [place], Medication Administered: TDAP [IM], Dose: 0.5 mL IM. Medication Ordered: Tdap IM 0.5 mL (NOW, per protocol).
== END 2016-08-18 22:25 | disposition home or self-care (01) ==
LOC: ED SRH 21:41
DX: S30.811A Abrasion of abdominal wall, initial encounter (principal); W55.03XA Scratched by cat, initial encounter; Y93.89 Activity, other specified; Y92.89 Other specified places as the place of occurrence of the external cause; Y99.8 Other external cause status; Z23 Encounter for immunization; Z88.1 Allergy status to other antibiotic agents